=== PATIENT | female | born 1965 | race Caucasian/White ===

== ENCOUNTER 2021-06-15 13:27 | Outpatient (CLI) | payer OTHER | END 2021-06-15 13:28 | disposition home or self-care (01) | LOC: CSHMAMMO 13:27 | PROVIDERS: ATTEND Family Medicine | DX: Z13.820 Encounter for screening for osteoporosis (principal); S22.089D Unspecified fracture of T11-T12 vertebra, subsequent encounter for fracture with routine healing; M85.89 Other specified disorders of bone density and structure, multiple sites | CPT/HCPCS: 77080 ==